=== PATIENT | female | born 1995 | race Caucasian/White ===

== ENCOUNTER → 2023-11-16 07:00 | Outpatient (REF) | payer BC, SELFPAY | LOC: MRI 3T 07:00 | PROVIDERS: ATTENDING PHYSICIAN Family Medicine | DX: H93.11 Tinnitus, right ear (principal); R51.9 Headache, unspecified; W57.XXXS Bitten or stung by nonvenomous insect and other nonvenomous arthropods, sequela; M25.50 Pain in unspecified joint; R53.83 Other fatigue; H53.9 Unspecified visual disturbance | CPT/HCPCS: 70551 ==